=== PATIENT | female | born 1985 | race Caucasian/White ===

== ENCOUNTER 2019-06-22 17:51 | Emergency (ER) | payer SELFPAY ==
--- NOTE | 2019-06-22 21:28 | ED ---
Abdominal Pain/Female - HPI Summary HPI Summary: The patient is a 34 year old F presenting to [facility] accompanied by her mother with a chief complaint of RUQ abdominal pain for about a month and has been worsening for about a week and is rated a 6/10 in severity. She states that the pain radiates from her RUQ down to her RLQ and also to her shoulder blade and up her R back. She stated that the pain waxes and wanes. She has had a decreased appetite since 06/20/19. She also stated that she felt a lump in her RLQ when she stands and palpates the area. She denies any SOB, CP, headaches, recent fevers, chills, and N/V. She stated no aggravating or alleviating symptoms. She is unaware of her last period due to her IUD she has had. She recently has gotten her IUD removed. - History of Current Complaint Chief Complaint: Tona Stated Complaint: ABD PAIN PER PT Time Seen by Provider: 06/22/19 21:15 Hx Obtained From: Patient Hx Last Menstrual Period: IUD Onset/Duration: Gradual Onset, Lasting Weeks - 4, Still Present, Worse Since - last week Timing: Constant Severity Initially: Mild Severity Currently: Moderate Pain Intensity: 6 Pain Scale Used: 0-10 Numeric Location: Discrete At: RUQ Radiates: Yes Radiates to: Back, RLQ Aggravating Factor(s): Nothing Alleviating Factor(s): Nothing Associated Signs and Symptoms: Positive: Back Pain, Decreased Appetite, Other: - SOB, headaches, chills, and N/V.. Negative: Fever, Chest Pain, Nausea, Vomiting Allergies/Adverse Reactions: Allergies Allergy/AdvReac Type Severity Reaction Status Date / Time No Known Allergies Allergy Verified 06/22/19 21:27 PMH/Surg Hx/FS Hx/Imm Hx Previously Healthy: Yes Endocrine/Hematology History: Denies: Hx Diabetes, Hx Thyroid Disease Cardiovascular History: Denies: Hx Hypertension Respiratory History: Denies: Hx Asthma, Hx Chronic Obstructive Pulmonary Disease (COPD) GI History: Denies: Hx Ulcer Infectious Disease History: No Infectious Disease History: Denies: Hx Hepatitis, Hx Human Immunodeficiency Virus (HIV), Traveled Outside the [place] in Last 30 Days - Family History Known Family History: Positive: Cardiac Disease - [place], Other - biological father unknown - Social History Occupation: Employed Full-time Lives: With Family Alcohol Use: Occasionally Hx Substance Use: No Substance Use Type: Reports: None Hx Tobacco Use: No Smoking Status (MU): Never Smoked Tobacco Review of Systems Negative: Fever, Chills Negative: Chest Pain Negative: Shortness Of Breath Positive: Abdominal Pain - RUQ, radiates to her RLQ. Negative: Vomiting, Nausea Positive: Myalgia - pain radiates to her R shoulder blade and up her back Negative: Headache All Other Systems Reviewed And Are Negative: Yes Physical Exam - Summary Physical Exam Summary: VITAL SIGNS: Reviewed. GENERAL: Patient is a well-developed and nourished female who is lying comfortable in the stretcher. Patient is not in any acute respiratory distress. HEAD AND FACE: No signs of trauma. No ecchymosis, hematomas or skull depressions. No sinus tenderness. EYES: PERRLA, EOMI x 2, No injected conjunctiva, no nystagmus. EARS: Hearing grossly intact. Ear canals and tympanic membranes are within normal limits. MOUTH: Oropharynx within normal limits. NECK: Supple, trachea is midline, no adenopathy, no JVD, no carotid bruit, no c- spine tenderness, neck with full ROM CHEST: Symmetric, no tenderness at palpation LUNGS: Clear to auscultation bilaterally. No wheezing or crackles. CVS: Regular rate and rhythm, S1 and S2 present, no murmurs or gallops appreciated. ABDOMEN: Soft, RUQ tenderness. No signs of distention. No rebound no guarding, and no masses palpated. Bowel sounds are normal. EXTREMITIES: FROM in all major joints, no edema, no cyanosis or clubbing. NEURO: Alert and oriented x 3. No acute neurological deficits. Speech is normal and follows commands. SKIN: Dry and warm Triage Information Reviewed: Yes Vital Signs On Initial Exam: Initial Vitals Temp Pulse Resp BP Pulse Ox 99.9 F 67 16 157/91 99 06/22/19 17:59 06/22/19 17:59 06/22/19 17:59 06/22/19 17:59 06/22/19 17:59 Vital Signs Reviewed: Yes Diagnostics - Vital Signs Vital Signs Temp Pulse Resp BP Pulse Ox 06/22/19 21:21 98.2 F 06/22/19 20:28 100.1 F 64 16 143/93 97 06/22/19 17:59 99.9 F 67 16 157/91 99 - Laboratory Result Diagrams: 06/22/19 21:33 06/22/19 21:33 Lab Statement: Any lab studies that have been ordered have been reviewed, and results considered in the medical decision making process. - Ultrasound Abdominal US Ultrasound Interpretation Completed By: Radiologist Summary of Ultrasound Findings: Normal abdominal US. ED physician has reviewed this report. Abdominal Pain Fem Course/Dx - Course Course Of Treatment: The patient is a 34 year old F presenting to [facility] accompanied by her mother with a chief complaint of RUQ abdominal pain for about a month and has been worsening for about a week and is rated a 6/10 in severity. She states that the pain radiates from her RUQ down to her RLQ and also to her shoulder blade and up her R back. Her PE found that she had RUQ pain. Pt stated that the pain was not severe enough to require pain medications and denied the administration of them. Her US found no abnormal findings. The pt will be discharged home with a Dx of abdominal pain. - Diagnoses Provider Diagnoses: Abdominal pain Discharge - Sign-Out/Discharge Documenting (check all that apply): Patient Departure - discharge Patient Received Moderate/Deep Sedation with Procedure: No - Discharge Plan Condition: Stable Disposition: HOME Referrals: [facility] [Outside] - 2 Days Additional Instructions: PLEASE RETURN TO THE ED IMMEDIATELY FOR WORSENING OR CONCERNING SYMPTOMS AND FOLLOW UP WITH [facility] IN 1-3 DAYS. - Attestation Statements Document Initiated by Scribe: Yes Documenting Scribe: Daryl Zuleta Provider For Whom Scribe is Documenting (Include Credential): Shashi Mckinnon MD Scribe Attestation: Daryl Stone, scribed for Shashi Mckinnon MD on 06/23/19 at 0003. Status of Scribe Document: Ready
[2019-06-22 21:37] LABS: Urine Appearance Cloudy; Urine Bilirubin Negative (Negative); Urine Blood Negative (Negative); Urine Color Yellow; Urine Glucose Negative (Negative); Urine Ketones Trace (Negative); Urine Nitrite Negative (Negative); Urine Protein Negative (Negative); Urine Specific Gravity 1.016 (1.010-1.030); Urine Urobilinogen Negative (Negative)
[2019-06-22 21:40] LABS: ABS Eosinophils 0.1 10^3/ul (0-0.6); ABS Lymphocytes 2.7 10^3/ul (1.0-4.8); ABS Monocytes 0.5 10^3/ul (0-0.8); ABS Neutrophils 3.9 10^3/ul (1.5-7.7); Eosinophil % 0.8 %; Hematocrit 43 % (35-47); Lymphocyte % 37.8 %; Mean Corpuscular HGB Conc 35 g/dL (31-36); Mean Corpuscular Hemoglobin 32 pg (27-31); Mean Corpuscular Volume 90 fL (80-97); Mean Platelet Volume 7.9 fL (7.4-10.4); Nucleated Red Blood Cells % 0.1; Platelet Count 195 10^3/uL (150-450); Red Blood Count 4.75 10^6 /uL (3.70-4.87); Red Cell Distribution Width 13 % (10-15); White Blood Count 7.2 10^3/uL (3.5-10.8)
[2019-06-22 21:58] LABS: ALT 23 U/L (7-52); AST 24 U/L (13-39); Albumin 4.5 g/dL (3.2-5.2); Albumin/Globulin Ratio 1.4 (1-3); Alkaline Phosphatase 47 U/L (34-104); Amylase 39 U/L (29-103); Anion Gap 8 mmol/L (2-11); BUN/Creatinine Ratio 13.8 (8-20); Blood Urea Nitrogen 11 mg/dL (6-24); C Reactive Protein < 1.00 mg/L (<8.01); CO2 Carbon Dioxide 27 mmol/L (22-32); Calcium 9.8 mg/dL (8.6-10.3); Chloride 102 mmol/L (101-111); EGFR African American 98.8 (>60); EGFR Non-African American 81.6 (>60); Globulin 3.2 g/dL (2-4); Glucose 85 mg/dL (70-100); Potassium 3.2 mmol/L (3.5-5.0); Sodium 137 mmol/L (135-145); Total Protein 7.7 g/dL (6.4-8.9)
[2019-06-22] MEDS ORDERED: Potassium Chlor TAB* 20 MEQ TAB.ER PO ONE (22:01)
[2019-06-22 22:05] LABS: HCG Pregnancy < 0.60 mIU/mL
[2019-06-23 00:18] VITALS: BP 98/64
== END 2019-06-23 00:15 | disposition home or self-care (01) ==
LOC: ED 17:51
DX: R10.11 Right upper quadrant pain (principal); M54.9 Dorsalgia, unspecified; R06.02 Shortness of breath; R51 Headache; R11.2 Nausea with vomiting, unspecified; Z92.0 Personal history of contraception
CPT/HCPCS: 36415; 76700; 80053; 81003; 82150; 83690; 84702; 85025; 86140; 99282; A9270-GY

== ENCOUNTER 2019-08-13 12:25 | Emergency (ER) | payer OTHER ==
--- OUTSIDE RECORDS SUMMARY | 2019-08-13 12:36 | XMS REPORT | Summary of Care ---
:1985 Author Organization [facility] Address [address] [place] [address] Care Team Providers Name Role Phone None, [place] Primary Care Provider Unavailable Reason for Referral Refer to Department Only (Routine) Status Reason Specialty Diagnoses / Referred By Referred To Procedures Contact Contact Pending Review Gastroenterology Diagnoses Constipation, unspecified constipation type Pain of upper abdomen Shankar Davidson MD Gastroenterolo [address] [address] [place] [place] [address] [address] [place] Phone: [phone] Phone: Scheduling Instructions Is the patient on cpap machine?No Is the patient on oxygen?No BP 108/58 (BP Location: Left arm, Patient Position: Sitting) | Pulse 73 | Temp 98.6 F (37 C) | Ht 5' 2" (1.575 m) | Wt 107 lb 14.4 oz (48.9 kg) | SpO2 100% | BMI 19.74 kg/m BMI Readings from Last 4 Encounters: 08/06/19 : 19.74 kg/m 07/16/19 : 19.44 kg/m 07/07/18 : 20.12 kg/m 05/15/16 : 20.30 kg/m Controlled Substance Medications: Anticoagulant Medications: Psychiatric/Antianxiety Medications: Antiretroviral Medications: Reason for Visit Reason Comments Follow Up pt stated is doing better but still only going every three days still has pain on right side but it comes and goes Encounter Details Date Type Department Care Team Description 08/06/2019 Office Visit [facility] [place], Constipation, unspecified constipation type (Primary Dx); Practice MD Vonda Pain of upper abdomen [address] [place] [address] [place] [address] [phone] Allergies No Known Allergiesdocumented as of this encounter (statuses as of 08/06/2019) Medications Medication Sig Dispensed Refills Start Date End Date Status docusate sodium Take 100 mg by 0 Active (COLACE) 100 MG Oral mouth TWICE Cap DAILY. documented as of this encounter (statuses as of 08/06/2019) Active Problems Problem Noted Date Mood disorder Overview: post- vs post-traumatic stress disorder, acitve counseling since 2009 since divorce documented as of this encounter (statuses as of 08/06/2019) Immunizations Name Administration Dates Next Due Varicella Vaccine Live 06/04/2013 documented as of this encounter Social History Tobacco Use Types Packs/Day Years Used Date Never Smoker Smokeless Tobacco: Never Used Alcohol Use Drinks/Week oz/Week Comments Yes Occasional Alcohol Habits Answer Date Recorded How often do you have a drink containing alcohol? Monthly or less 07/16/2019 How many drinks containing alcohol do you have on a Not asked typical day when you are drinking? How often do you have six or more drinks on one Not asked occasion? Sex Assigned at Date Recorded Not on file Job Start Date Occupation Industry Not on file Not on file Not on file Travel History Travel Start Travel End No recent travel history available. documented as of this encounter Last Filed Vital Signs Vital Sign Reading Time Taken Comments Blood Pressure 108/58 08/06/2019 6:17 PM EDT Pulse 73 08/06/2019 6:17 PM EDT Temperature 37 08/06/2019 6:17 PM C (98.6 EDT F) Respiratory Rate - - Oxygen Saturation 100% 08/06/2019 6:17 PM EDT Inhaled Oxygen Concentration - - Weight 48.9 kg (107 lb 14.4 oz) 08/06/2019 6:17 PM EDT Height 157.5 cm (5' 2") 08/06/2019 6:17 PM EDT Body Mass Index 19.74 08/06/2019 6:17 PM EDT documented in this encounter Patient Instructions Patient InstructionsVonda Davidson MD - 08/06/2019 6:20 PM EDT1. Schedule appointment with GI documented in this encounter Progress Notes Vonda Davidson MD - 08/06/2019 6:20 PM EDT Patient: Leela Camarillo Date of Service: 08/06/2019 Subjective: Leela Camarillo is a 34-y.o. female who presents for Chief Complaint Patient presents with Follow Up pt stated is doing better but still only going every three days still has pain on right side but it comes and goes Patient comes follow up constipation Improved with Colace: back to her baseline BM every 2-3 days RUQ abdominal pain - much improved History reviewed. No pertinent past medical history. No current outpatient medications on file as of 08/06/2019. No current facility-administered medications on file as of 08/06/2019. No Known Allergies Review of Systems: All remaining review of systems was negative. Objective: BP 108/58 (BP Location: Left arm, Patient Position: Sitting) Pulse 73 Temp 98.6 F (37 C) Ht 5' 2" (1.575 m) Wt 107 lb 14.4 oz (48.9 kg) SpO2 100 % BMI 19.74 kg/m2 General appearance: alert, well appearing, and in no distress. CMP, CBC, TSH - normal Component Latest Ref Rng & Units 07/27/2019 07/27/2019 07/27/2019 07/27/2019 9:37 AM 9:37 AM 9:37 AM 9:37 AM WBC COUNT 3.98 - 10.04 K/uL 4.23 RBC 3.93 - 5.22 M/UL 4.54 Hemoglobin 11.2 - 15.7 g/dL 14.1 Hematocrit 34.1 - 44.9 % 41.1 MCV 79.4 - 94.8 FL 90.5 MCH 25.6 - 32.2 PG 31.1 MCHC 32.2 - 35.5 g/dL 34.3 Platelet Count 182 - 369 K/uL 201 MPV 9.4 - 12.3 FL 10.4 RDW 11.7 - 14.4 % 12.4 NEUTROPHILS 34.0 - 71.1 % 50.5 Lymphocyte % 19.3 - 51.7 % 37.8 MONOCYTES 4.7 - 12.5 % 8.7 Eosinophils 0.7 - 5.8 % 2.1 Basophil % 0.1 - 1.2 % 0.7 nRBC % 0.0 - 0.2 % 0.0 Neutrophil # 1.56 - 6.13 K/UL 2.13 Lymphocyte # 1.18 - 3.74 K/UL 1.60 Monocyte # 0.24 - 0.86 K/UL 0.37 Eosinophil # 0.04 - 0.36 K/UL 0.09 Basophil # 0.01 - 0.08 K/UL 0.03 Immature Gran % 0.0 - 0.4 % 0.2 Immature Gran # 0.00 - 0.03 K/uL 0.01 NRBC # 0.00 - 0.12 K/uL 0.00 Sodium 134 - 145 mmol/L 140 Potassium 3.5 - 5.1 mmol/L 3.8 Chloride 98 - 107 mmol/L 103 CO2 22 - 30 mmol/L 26 Calcium 8.3 - 10.1 mg/dl 9.4 Albumin 3.5 - 5.0 g/dl 4.3 BUN 7 - 17 mg/dl 10 Creatinine 0.7 - 1.2 mg/dl 0.7 Glucose (Lab) 70 - 99 mg/dl 75 Protein,Total 6.3 - 8.2 g/dl 7.9 Total Bilirubin 0.0 - 1.1 MG/DL 0.7 AST 15 - 46 U/L 35 ALT 9 - 52 U/L 45 ALKALINE PHOSPHATASE 40 - 150 U/L 44 eGFR See Interpretation Below ml/min/1.73ml Sq >60 BUN/Creatinine Ratio 6 - 22 RATIO 14 Anion Gap 3 - 11 mmol/L 11 A/G Ratio 0.8 - 2.0 ratio 1.2 Free T4 0.8 - 2.2 NG/DL 1.0 TSH 0.47 - 4.68 uIu/ml 2.47 Patient advised on tests results ICD-9-CM ICD-10-CM 1. Constipation, unspecified constipation type Improved 564.00 K59.00 REFER TO GI 2. Pain of upper abdomen Advised on HIDA scan Hesitant 789.09 R10.10 REFER TO GI Patient Instructions 1. Schedule appointment with GI Author: Vonda Davidson MD documented in this encounter Plan of Treatment Name Type Priority Associated Diagnoses Order Schedule REFER TO GI Referral Routine Constipation, unspecified Expected: 08/06/2019 , constipation type Expires: 08/06/2020 Pain of upper abdomen Health Maintenance Due Date Last Done Comments INFLUENZA VACCINE (#1) 2019 DEPRESSION SCREENING 07/16/2020 07/16/2019 PAP SMEAR 12/16/2020 12/16/2017 HPV IMMUNIZATION SERIES Aged Out No longer eligible based on patient's age to complete this topic MENINGOCOCCAL VACCINE IMM Aged Out No longer eligible based on patient's age to complete this topic PNEUMOCOCCAL 0-64 YRS Aged Out No longer eligible based on patient's age to complete this topic documented as of this encounter Results Not on filedocumented in this encounter Visit Diagnoses Diagnosis Constipation, unspecified constipation type - Primary Pain of upper abdomen Abdominal pain, other specified site documented in this encounter Guarantor Name Account Type Relation to Date of Phone Billing Patient Address Leela Camarillo Personal/Family 1985 [address] (Home) [place] [phone] (Work) documented as of this encounter
--- OUTSIDE RECORDS SUMMARY | 2019-08-13 12:36 | XMS REPORT | Summary of Care ---
:1985 Author Organization [facility] Address [address] [place] [address] Care Team Providers Name Role Phone None, [place] Primary Care Provider Unavailable Reason for Visit Reason Comments Check Up pt c/o stomach issues has been bloated consitpated and all around feels not good Encounter Details Date Type Department Care Team Description 07/16/2019 Office Visit [facility] [place], Constipation, unspecified constipation type (Primary Dx); Practice MD Vonda Pain of upper abdomen [address] [place] [address] [place] [address] [phone] Allergies No Known Allergiesdocumented as of this encounter (statuses as of 07/16/2019) Medications Medication Sig Dispensed Refills Start Date End Date Status Levonorgestrel by Intrauterine 0 07/16/20 Discontinued (MIRENA) 20 route. 19 MCG/24HR Intrauterine IUD documented as of this encounter (statuses as of 07/16/2019) Active Problems Problem Noted Date Mood disorder Overview: post- vs post-traumatic stress disorder, acitve counseling since 2009 since divorce documented as of this encounter (statuses as of 07/16/2019) Immunizations Name Administration Dates Next Due Varicella [...] Sign Reading Time Taken Comments Blood Pressure 92/60 07/16/2019 6:39 PM EDT Pulse 69 07/16/2019 6:39 PM EDT Temperature 37.8 07/16/2019 6:39 PM EDT C (100 F) Respiratory Rate - - Oxygen Saturation 97% 07/16/2019 6:39 PM EDT Inhaled Oxygen Concentration - - Weight 48.2 kg (106 lb 4.8 oz) 07/16/2019 6:39 PM EDT Height 157.5 cm (5' 2") 07/16/2019 6:39 PM EDT Body Mass Index 19.44 07/16/2019 6:39 PM EDT documented in this encounter Patient Instructions Patient InstructionsVonda Davidson MD - 07/16/2019 6:40 PM EDT1. For the constipation, push fluids, take fiber product on a daily basis ( e.g. Metamucil, Fibercon, Citrucel, Benifiber) ,then Colace 100 mg bid to maintain soft bowel movement until normal pattern ensues, hold for diarrhea. Maintain a high fiber diet with plenty of roughage, and 6-8 large glasses of water daily to avoid constipation in the future. 2. Schedule non fasting blood tests 3. Follow up in 2-3 weeks and as needed documented in this encounter Progress Notes Vonda Davidson MD - 07/16/2019 6:40 PM EDT Patient: Leela Camarillo Date of Service: 07/16/2019 Subjective: Leela Camarillo is a 34-y.o. female who presents for Chief Complaint Patient presents with Check Up pt c/o stomach issues has been bloated consitpated and all around feels not good Patient comes with complains of abdominal cramps, bloating, constipation Has long history of having BM's every 2-3 days Now has BM's once a week or so Some nausea, no vomiting No improvement with Carleen lax, fibers Also had some episodes of RUQ area Seen at [facility] 06/22/19 Upper abdominal US: no gallstones CMP - slightly low K, normal LFT's, amylase, Lipase History reviewed. No pertinent past medical history. No current outpatient medications on file as of 07/16/2019. No current facility-administered medications on file as of 07/16/2019. No Known Allergies Review of Systems: All remaining review of systems was negative. Objective: BP 92/60 (BP Location: Left arm, Patient Position: Sitting) Pulse 69 Temp 100 F (37.8 C) Ht 5' 2" (1.575 m) Wt 106 lb 4.8 oz (48.2 kg) SpO2 97% BMI 19.44 kg/m2 GENERAL: alert, no distress THROAT: lips, mucosa, and tongue normal: teeth and gums normal NECK: supple, symmetrical, trachea midline and no adenopathy LUNGS: clear to auscultation bilaterally HEART: regular rate and rhythm, S1, S2 normal, no murmur, click, rub or gallop ABDOMEN: soft, diffusely tender. Bowel sounds normal. No masses, no organomegaly ICD-9-CM ICD-10-CM 1. Constipation, unspecified constipation type 564.00 K59.00 COMPREHENSIVE METABOLIC PANEL THYROID STIMULATING HORMONE FREE T4 2. Pain of upper abdomen Consider HIDA scan 789.09 R10.10 CBC WITH DIFFERENTIAL Patient Instructions 1. For the constipation, push fluids, take fiber product on a daily basis ( e.g. Metamucil, Fibercon, Citrucel, Benifiber) ,then Colace 100 mg bid to maintain soft bowel movement until normal pattern ensues, hold for diarrhea. Maintain a high fiber diet with plenty of roughage, and 6-8 large glasses of water daily to avoid constipation in the future. 2. Schedule non fasting blood tests 3. Follow up in 2-3 weeks and as needed Author: Vonda Davidson MD documented in this encounter Plan of Treatment Date Type Specialty Care Team Description 07/27/2019 Ancillary Procedure Radiology 07/27/2019 Lab Internal Medicine 08/06/2019 Office Visit Family Practice Vonda Davidson MD [address] [place] [address] [phone] Name Type Priority Associated Diagnoses Order Schedule COMPREHENSIVE METABOLIC Lab Routine Constipation, unspecified Expected: 03/2019 PANEL constipation type (Approximate), Expires: 07/16/2020 THYROID STIMULATING Lab Routine Constipation, unspecified Expected: 2018 HORMONE constipation type (Approximate), Expires: 07/16/2020 FREE T4 Lab Routine Constipation, unspecified Expected: 07/16/2019 constipation type (Approximate), Expires: 07/16/2020 CBC WITH DIFFERENTIAL Lab Routine Pain of upper abdomen Expected: 2018 (Approximate), Expires: 07/16/2020 Health Maintenance Due Date Last Done Comments PAP SMEAR 1985 INFLUENZA VACCINE (#1) 2019 DEPRESSION SCREENING 07/16/2020 07/16/2019 HPV IMMUNIZATION SERIES Aged Out No longer eligible based on patient's age to complete this topic MENINGOCOCCAL VACCINE IMM Aged Out No longer eligible based on patient's age to complete this topic PNEUMOCOCCAL 0-64 YRS Aged Out No longer eligible based on patient's age to complete this topic documented as of this encounter Procedures Procedure Name Priority Date/Time Associated Diagnosis Comments PAP SMEAR THINPREP AND Routine 12/16/2017 Results for this HPV (EXTERNAL) procedure are in the results section. documented in this encounter Results PAP SMEAR THINPREP AND HPV (EXTERNAL) (12/16/2017) HM PAP SMEAR normal [facility] Performing Organization Address City/State/Zipcode Phone Number [facility] [address] [place] [place] [address] documented in this encounter Visit Diagnoses Diagnosis Constipation, unspecified constipation type - Primary Pain of upper abdomen Abdominal pain, other specified site documented in this encounter
[2019-08-13 12:42] VITALS: BP 113/64
--- NOTE | 2019-08-13 12:46 | UC ---
Eye Complaint HPI - HPI Summary HPI Summary: 34-year-old female presents with onset of some left upper eyelid tenderness on 09/09/2019 that she attributed to a stye. States yesterday she woke up in the morning and noticed some mild redness to the left upper eyelid the progressively worsened throughout the day. States when she woke up this morning noted that the entire eyelid was now red and swollen and she was having some eye redness, purulent discharge from the eye, as well as some crusting of the eye upon waking. No known injury. Denies fever, chills, eye pain, visual disturbances, photophobia, or URI symptoms. - History of Current Complaint Chief Complaint: UCEye Stated Complaint: LEFT EYE Time Seen by Provider: 08/13/19 12:41 Hx Obtained From: Patient Hx Last Menstrual Period: 07/22/19 Pain Intensity: 2 - Allergies/Home Medications Allergies/Adverse Reactions: Allergies Allergy/AdvReac Type Severity Reaction Status Date / Time No Known Allergies Allergy Verified 08/13/19 12:42 PMH/Surg Hx/FS Hx/Imm Hx Previously Healthy: Yes - Denies significant PMH - Surgical History Surgical History: None - Family History Known Family History: Positive: Cardiac Disease - [place], Other - biological father unknown - Social History Occupation: Employed Full-time Lives: Alone Alcohol Use: None Substance Use Type: None Smoking Status (MU): Never Smoked Tobacco Review of Systems All Other Systems Reviewed And Are Negative: Yes Constitutional: Negative: Fever, Chills Eyes: Positive: Drainage, Other - See HPI. Negative: Blurred Vision, Diplopia, Eye Redness, Photophobia ENT: Positive: Negative Respiratory: Positive: Negative Cardiovascular: Positive: Negative Gastrointestinal: Positive: Negative Genitourinary: Positive: Negative Musculoskeletal: Positive: Negative Neurological: Positive: Negative Is Patient Immunocompromised?: No Physical Exam - Summary Physical Exam Summary: GENERAL APPEARANCE: Well developed, well nourished, alert and cooperative, and appears to be in no acute distress. EYES: Erythema and mild edema of the left upper eyelid that extends to the left side of the nose. There is a pale raised lesion with surrounding erythema noted to the central inner upper eyelid. Mild left conjunctival erythema with scant amount of purulent drainage noted to the inner canthus. Right conjunctiva clear. No drainage. PERRL, EOM intact. Vision is grossly intact. Visual acuity by nursing 20/20 right, 20/20 left, 20/20 both. EARS: External auditory canals and tympanic membranes clear, hearing grossly intact. NOSE: No nasal discharge. THROAT: Pharynx normal. No tonsilar inflammation, swelling, exudate, or lesions. Uvula midline. NECK: Neck supple, non-tender without lymphadenopathy. CARDIAC: Normal S1 and S2. No S3, S4 or murmurs. Rhythm is regular. There is no peripheral edema, cyanosis or pallor. Extremities are warm and well perfused. Capillary refill is less than 2 seconds. Peripheral pulses intact. LUNGS: Clear to auscultation without rales, rhonchi, wheezing or diminished breath sounds. ABDOMEN: Positive bowel sounds. Soft, nondistended, nontender. No guarding or rebound. No masses or hepatosplenomegally. MUSKULOSKELETAL: ROM intact to all extremities. No joint erythema or tenderness. Normal muscular development. Normal gait. SKIN: Skin normal color, texture and turgor. Triage Information Reviewed: Yes Vital Signs: Initial Vital Signs Temp 98.6 F 08/13/19 12:38 Pulse 69 08/13/19 12:38 Resp 18 08/13/19 12:38 BP 113/64 08/13/19 12:38 Pulse Ox 100 08/13/19 12:38 Vital Signs Reviewed: Yes Eye Complaint Course/Dx - Course Course Of Treatment: 34-year-old female presents with onset of some left upper eyelid tenderness on 09/09/2019 that she attributed to a stye. States yesterday she woke up in the morning and noticed some mild redness to the left upper eyelid the progressively worsened throughout the day. States when she woke up this morning noted that the entire eyelid was now red and swollen and she was having some eye redness, purulent discharge from the eye, as well as some crusting of the eye upon waking. No known injury. Denies fever, chills, eye pain, visual disturbances, photophobia, or URI symptoms. Afebrile. Vital signs stable. Patient had erythema and mild edema of the left upper eyelid that extends to the left side of the nose. There is a pale raised lesion with surrounding erythema noted to the central inner upper eyelid. Mild left conjunctival erythema with scant amount of purulent drainage noted to the inner canthus. Right conjunctiva clear. No drainage. PERRL, EOM intact. Vision is grossly intact. Visual acuity by nursing 20/20 right, 20/20 left, 20/20 both. Remainder of exam was unremarkable. Scheduled to patient that the lesion of the inner eyelid is consistent with an internal hordeolum however I am concerned about a secondary periseptal cellulitis especially with the progressively worsening erythema and swelling of the left upper eyelid. We will start her on amoxicillin 875 mg twice a day 7 days as well as Bactrim DS 1 tablet twice a day 7 days to treat for the preseptal cellulitis. I was able to arrange for evaluation by ophthalmology today. Patient will be seeing Dr. Daniella Beltran at 520 this afternoon. Patient verbalizes understanding and agreement with plan of care. - Differential Dx/Diagnosis Differential Diagnosis/HQI/PQRI: Conjunctivitis, Corneal Abrasion, Foreign Body , Periorbital Cellulitis, Orbital Cellulitis Provider Diagnosis: Internal hordeolum of left eye, Preseptal cellulitis of left upper eyelid Discharge ED - Sign-Out/Discharge Documenting (check all that apply): Patient Departure All imaging exams completed and their final reports reviewed: No Studies - Discharge Plan Condition: Stable Disposition: HOME Prescriptions: Amoxicillin 875 mg PO BID 7 Days #14 tablet Sulfamethox/Trimethoprim DS* [Bactrim DS 800/160 TAB*] 1 tab PO BID 7 Days #14 tab Patient Education Materials: Stye (ED), Periorbital Cellulitis in Adults (ED) Referrals: Vonda Davidson MD [Primary Care Provider] - Michelle Quick MD [Medical Doctor] - (You will be seeing Dr. Daniella Beltran at 5:20 today.) Additional Instructions: Your exam is consistent with a internal hordeolum (stye) of the left upper eyelid however I am concerned that you may also have an infection called preseptal cellulitis. We will start you on 2 different antibiotics to treat the infection. Start amoxicillin 875 mg 1 tablet twice a day 7 days. Start Bactrim DS 1 tablet twice a day 7 days. Take acetaminophen (Tylenol) or ibuprofen (Advil, Motrin) according to directions as needed for pain. I have made an appointment for you to follow-up with ophthalmology today. You will be seeing Dr. Daniella Beltran at 5:20 PM at [address] [place] [address]. Call [phone] if you need to reschedule the appointment but you should be evaluated within 1 day. Please arrive 15 minutes before your scheduled appointment to complete any necessary paperwork. - Billing Disposition and Condition Condition: STABLE Disposition: Home
== END 2019-08-13 13:27 | disposition home or self-care (01) ==
LOC: UCCORT 12:25
DX: H00.024 Hordeolum internum left upper eyelid (principal); L03.213 Periorbital cellulitis
CPT/HCPCS: 99212; G0463